=== PATIENT | female | born 1990 | race Caucasian/White ===

== ENCOUNTER 2016-05-18 20:18 | Emergency (ER) | payer MEDICARE, MEDICAID ==
[~2016-05-18] VITALS: Ht 149.9 cm; Wt 118.2 kg
[~2016-05-18 20:18] MED LIST: PREN1TAB47 PO; ZOL50 PO
[2016-05-18 20:20] VITALS: BP 143/77; PULSE 80; RESP 18; O2SAT 97
--- NOTE | 2016-05-18 21:35 | ED.REPORT ---
HPI-Extremity Problem Lower Date of Service May 18, 2016 ED Provider: Benja Alexis MD Patient is a 25 year old female who is currently presents to the ED with left ankle pain after she fell off a step leaving their house just prior to arrival. She reports intense pain right after the injury occurred, with associated swelling and bruising. The patient denies having any pain when ambulating on her foot and is able to bear weight on her foot. She is able to move her ankle normally and denies any numbness in her toes. She did not sustain any other injuries. Patient was cleared by Family prior to arrival. Nursing Notes Stated Complaint: L ANKLE Chief Complaint: Extremity Trauma Nursing Notes Reviewed: Yes Allergies: Coded Allergies: No Known Allergies (Verified , 11/22/15) Scheduled Vit/Fe Fumarate/Fa-Expunged Drug, Do (-Expunged Drug, Do Not Renew!) 1 Tab Tablet 1 TAB PO DAILY Sertraline-Expunged Drug, Choose New Med! (Sertraline-Expunged Drug, Choose New Med!) 50 Mg Tab 50 MG PO DAILY General Time Seen by MD: 20:25 Chief Complaint Ankle injury left Hx Obtained From: Patient Arrived By: Walk-in Onset Occurred: Just prior to arrival Symptom Duration: Since onset Location: : Ankle left Quality: Painful Severity: Current: No pain currently Severity: Maximum: Severe Recent Healthcare: No recent doctor visit, No recent hospitalization Similar Sx Previous: No Past Medical History Past Medical History none reported Past Surgical History Reports: Smoking History Unknown if Ever Smoker Social History Other Social History: Good social support, Local resident Ambulatory Status Independent Review of Systems Musculoskeletal: Reports: Extremity pain, Extremity swelling, Joint pain Neurologic: Denies: Numbness, Weakness Complete sys rev & neg: except as marked. Physical Exam Initial Vital Signs Vital Signs (First) Date Time Temp Pulse Resp B/P Pulse Ox O2 Delivery O2 Flow Rate FiO2 05/18/16 20:20 36.7 80 18 143/77 97 Room Air Initial VS: Reviewed Head / Eyes: Atraumatic, Normocephalic, PERRL ENT: Conjunctiva normal, No scleral icterus Neck: Supple, Full range of motion Upper Extremities: Vascular intact, Neuro intact Skin: Warm, Dry, No cyanosis Neurologic: Alert, Oriented, Nonfocal Psychiatric: Mood/affect normal, Behavior normal, Normal thought content Lower Extremity / Pelvis / MS: Non-tender, Neurologic intact, Vascular intact Ankle / Foot: Neurologic intact, Vascular intact Left Ankle: Negative: Tenderness present... (no bony tenderness) General/Constitutional: Awake, Alert, No acute distress Appearance / Presentation: Positive: Obese Respiratory / Chest: Breath sounds NL, Breath sounds = bilat, No respiratory distress, No rales, No rhonchi, No wheezing Cardiovascular: Heart rate NL, Regular rhythm, No murmurs Interpretation & Diagnostics X-Ray Interpretation X-Ray Ordered: Ankle left (3VW) Interpretation / Wet Read by: Wet read ED physician Interpretation: Normal exam, No fracture/dislocation Re-Eval/Medical Decision Med Decision/Clinical Course 25-year-old female left ankle pain status post rolling ankle. Able to walk on it. X-ray negative. She has no pain at this time. Likely mild sprain. Recommend rice. Weightbearing as tolerated. Follow up primary doctor next week if symptoms persist. Source of Hx: Old records Re-Evaluation/Progress : Time of Eval: 21:46 Patient Status: Condition improved Re-Evaluation/Progress Note: X-ray was negative. Patient understands and agrees with the plan to be discharged home. Discharge instructions and follow-up discussed. All questions were addressed. Return to the ED warnings given. Counseled Regarding: Diagnosis, Need for follow-up, When/why to return to ED Discharge & Departure Impression: Primary Impression: Left ankle sprain Encounter type: initial encounter Involved ligament of ankle: unspecified ligament Qualified Code: S93.402A - Sprain of unspecified ligament of left ankle, initial encounter Disposition: Home Discharge Condition All VS Reviewed: Yes Condition: Stable Patient Instructions: Ankle Sprain (ED) Additional Instructions: Your x-ray today shows that you did not fracture your ankle, it is likely that you sprained your ankle. Use ice three times daily for 20 minutes at a time for pain and swelling. You should elevate your leg. You can also wrap your leg or use crutches if this is more comfortable for you. Follow-up with your doctor in the next week. Return to the emergency department if you develop pain, swelling, or any other concerning symptoms. Referrals: Jessica Desai (PCP) Scribe Attestation Portions of this note were transcribed by Heidi Dent. I, Dr. Alexis personally performed the history, physical exam and medical decision-making; I reviewed and confirmed the accuracy of the information in the transcribed note. Signed by: Vito Bustillo, 05/18/2016 [id number] copies to: Jessica Desai Ben M MD May 18, 2016 21:35 Heidi Dent May 18, 2016 21:41
--- NOTE | 2016-05-18 22:11 | DRSVH ---
PROCEDURE: X-RAY LEFT ANKLE, MINIMUM THREE VIEWS ([id number]) INDICATIONS: trauma TECHNIQUE: 3 views of the ankle were acquired. COMPARISON: None. FINDINGS: Bones: No fractures or dislocations. Ankle mortise is normally aligned. No suspicious bony lesions . Soft tissues: No tibiotalar joint effusion. Achilles tendon appears normal. IMPRESSION: No fracture. No osseous lesion. If there are persistent symptoms or clinical suspicion f or pathology, then repeat radiographs or advanced imaging (CT, MRI or bone scan) should be considered for further evaluation. Dictated by: Philomena Schumacher MD, PhD on 05/18/2016 at 22:09 Approved by: Philomena Schumacher MD, PhD on 05/18/2016 at 22:09
== END 2016-05-18 22:00 | disposition home or self-care (01) ==
LOC: SED 20:18
DX: S93.402A Sprain of unspecified ligament of left ankle, initial encounter (principal); W10.8XXA Fall (on) (from) other stairs and steps, initial encounter; Y92.009 Unspecified place in unspecified non-institutional (private) residence as the place of occurrence of the external cause; Y93.89 Activity, other specified; Y99.8 Other external cause status; Z33.1 Pregnant state, incidental
CPT/HCPCS: 73610; 76816; 99284; G0463

== ENCOUNTER 2016-06-20 07:30 | Inpatient (IN) | payer MEDICARE, MEDICAID ==
[~2016-06-20] VITALS: Ht 149.9 cm; Wt 117.0 kg
[~2016-06-20 07:30] MED LIST changes: +Carboprost 250 mCg/mL Inj IM PRN; +Hemorrhage Kit, Post Partum XX ONE; +Lactated Ringer's 1,000 ML IV SCH; +Methylergonovine 0.2 mg/mL Inj IM PRN; +Oxytocin 10 Unit/mL Inj IM PRN; +Sodium Citrate-Citric Acid 15 mL Solution PO SCH
[2016-06-20] MEDS ORDERED: CeFAZolin Inj 2 GM in Dextrose 5% 50 ML IV SCH (07:43)
[2016-06-20] MEDS ORDERED: Ondansetron 2 mg/mL 2 mL Inj ONE (08:06)
[2016-06-20] MEDS ORDERED: Phenylephrine/NS 100 mCg/mL 10 mL Syringe IVPUSH ONE (08:06)
[2016-06-20] MEDS ORDERED: Oxytocin 10 Unit/mL Inj ONE (08:06)
[2016-06-20] MEDS ORDERED: fentaNYL-PF 50 mCg/mL 2 mL Inj ONE (08:06)
[2016-06-20] MEDS ORDERED: Bupiv-Spinal 0.75%/Dex 8.25% 2 mL Inj ONE (08:06)
[2016-06-20] MEDS ORDERED: Propofol 10,000 mCg/mL 20 mL Inj ONE (08:06)
[2016-06-20] MEDS ORDERED: Morphine PF 1 mg/mL 10 mL Inj ONE (08:10)
[2016-06-20 09:56] LABS: Mean Corpuscular Hemoglobin 29.6 pg (27.0-35.0); Mean Corpuscular Volume 84.6 fL (81-100)
--- NOTE | 2016-06-20 09:58 | PCM.HPANE ---
Patient Data Surgeon Admitting Provider:Costa Feliz MD Attending Provider:Costa Feliz MD Primary Care Physician:Verna Bobo DO Other Provider:Jean Claude Miller Anesthesia Reason for Visit Term Repeat C Section Completed Family With Tubal Ht/WT & BMI Body Mass Index Allergies Coded Allergies: No Known Allergies (Verified , 11/22/15) Medications Reported Medications Sertraline-Expunged Drug, Choose New Med! 50 Mg Tab50 Mg PO DAILY Ref 0 10/24/08 Vit/Fe Fumarate/Fa-Expunged Drug, Do (-Expunged Drug, Do Not Renew!)1 Tab Tablet1 Tab PO DAILY Ref 0 10/24/08 History Smoking Status: Unknown if Ever Smoker Stop/Bang Risk Assessment Category Category 1A: Patient has history of documented sleep apnea, and HAS NOT received any narcotic, sedative or anesthesia administration during this stay. Category 1B: Patient has history of documented sleep apnea, and HAS received any narcotic , sedative or anesthesia administration during this stay Category 2: Patient has SUSPECTED Obstructive Sleep Apnea, and HAS received any narcotic , sedative or anesthesia administration during this stay. Category 3: Patient has SUSPECTED Obstructive Sleep Apnea and HAS NOT received narcotic, sedative or anesthesia administration during this stay. Category 4: Outpatient in Procedural Areas with known sleep apnea or who screen positive for High Risk via the STOP/BANG questionnaire. Exam Exam General Appearance: Alert, Oriented X3, Cooperative, No Acute Distress HEENT/AIRWAY: MP 2 Lungs: Clear to Auscultation Heart: Exam Unremarkable Plan Impression Patient chart reviewed, patient interviewed and anesthestic plan with risks, benefits, and alternatives discussed, and informed consent obtained. ASA Physical Status: ASA3 Severe Disease (morbid obesity, smoker, bipolar d/o) Anesthetic Plan: SAB Bene/Risks/Altern/Consents: Yes HP Complete Prior to Induction: Yes Mauro Ramos MD Jun 20, 2016 07:52
[2016-06-20] MEDS ORDERED: Lactated Ringer's 1,000 ML IV PRN (10:23)
[2016-06-20] MEDS ORDERED: MetoCLOpramide 5 mg/mL 2 mL Inj IVPUSH PRN (10:25)
[2016-06-20] MEDS ORDERED: EPHEDrine Sulfate 50 mg/mL Inj IVPUSH PRN (10:25)
[2016-06-20] MEDS ORDERED: Morphine PF 1 mg/mL 10 mL Inj INTRATHEC ONE (10:25)
[2016-06-20] MEDS ORDERED: Dexamethasone 4 mg/mL Inj IVPUSH PRN (10:25)
[2016-06-20] MEDS ORDERED: fentaNYL-PF 50 mCg/mL 2 mL Inj IVPUSH PRN (10:25)
[2016-06-20] MEDS ORDERED: Atropine 0.4 mg/mL Inj IV PRN (10:25)
[2016-06-20] MEDS ORDERED: Ondansetron 2 mg/mL 2 mL Inj IVPUSH PRN (10:25)
[2016-06-20] MEDS ORDERED: HYDROmorphone 1 mg/mL Inj IVPUSH PRN (10:25)
--- NOTE | 2016-06-20 11:47 | PCM.OBCSEC ---
Delivery Date of Service Jun 20, 2016 Pre Procedure Diagnosis 1. 39 weeks gestation 2. Obestity with BMI 52 3. Previous 4. Desires sterilization 5. Tobacco use Post Procedure Diagnosis 1. 39 weeks gestation 2. Obestity with BMI 52 3. Previous 4. Desires sterilization 5. Tobacco use 6. Light meconium Procedure Repeat low transverse delivery with bilateral tubal ligation Procedure: Planned Relay Associate/Open End Spinning Operator Surgeon: Costa Feliz MD Assistants: Sandra Rasheed MD Resident: David Barker DO, [facility] Dr. Rasheed's assistance was necessary due to obesity and safe completion of this complicated case. Indication for Procedure Milly is a 25 y/o at 38 weeks who presents today for her scheduled CD with BTL. Her dating is by sure LMP c/w 1st trimester dating. Her is complicated by 2 prior CDs, Bipolar disorder, Class III obesity, tobacco abuse. She had an anesthesia appointment already this . She has been measuring size> dates likely related to body habitus as EFW on u/s has been WNL. Risks, benefits and alternatives of the procedure were reviewed in detail preoperatively in the office on 06/13/2016 and consents obtained. Patient was allowed adequate time to have all questions answered and she denied new concerns or questions today. Findings Light meconium. Nuchal cord x 1. Normal uterus, tubes and ovaries. Obstetrical Findings: (Female) Cord (3 Vessel) Weight ( 3045 grams) Presentation (Vertex) 1 minute (4) 5 minutes (6) 10 minutes (8) Placenta (Intact/Normal) Complications None Analgesia/Medications Spinal Procedure Details The patient was taken to the OR where spinal anesthesia was established. She was placed in dorsal supine with a leftward tilt. García was placed. SCDs placed. She was prepped and draped in the usual sterile fashion. A time out was performed to confirm the correct patient and the correct procedure. The anesthesia was tested and found to be adequate. A scalpel was then used to make a Pfannenstiel incision through the prior incision and carried down to the underlying fascia. A transverse incision was made in the fascia, and the fascial incision was extended transversely. Sharp and blunt dissection was used to separate the rectus muscle from fascia superiorly and inferiorly. The rectus muscles were then divided in the midline and the peritoneum was identified and entered bluntly. The peritoneal incision was extended and the bladder blade was placed for visualization. A transverse hysterotomy incision was made in the lower uterine segment and extended. Rupture of membranes revealed light meconium. The fetus was delivered atraumatically after nuchal cord reduced. Active warming and stimulation provided with little respiratory effort by the baby, so at 20seconds the cord was clamped and cut and the was handed to the awaiting nurse. Cord blood was obtained. The placenta was then delivered intact. The uterus was exteriorized. The uterus was then cleared of the remaining clots and debris. The hysterotomy incision was then closed with single layer closure with 0-Vicryl suture. Hemostasis was obtained with two additional figure eights of 0-Vicryl over the hysterotomy. The right fallopian tube was identified, grasped with a Paris and 2 2-0 plain gut sutures passed through the mesosalpinx. The distal and proximal segments were tied so that 3cm of intervening tube was left and then excised. Hemostasis noted. This was repeated on the left. The posterior cul-de-sac was irrigated and cleared of clots and debris. The uterus was replaced into the abdominal cavity. The rectus muscles and fascia were inspected and hemostasis was obtained. The fascia was then closed in a running fashion using 0-vicryl suture. The subcutaneous tissue was irrigated and hemostasis was assured. Any areas of bleeding were cauterized with Bovie. The subcutaneous layer was closed with 2-0 plain gut. The skin was closed with 4-0 vicryl then Dermabond and steristrips placed. A pressure dressing was applied. Instrument, sponge, and needle counts were correct prior to abdominal closure and at the conclusion of the case. The patient tolerated the procedure well and was sent to recovery in stable condition. Specimen Bilateral tubal segments sent. Input/Output Intake, IV Amount: 2700 Catheters: Urethral 2 Way García (25) Blood Loss & Administration Estimated Blood Loss: 700 (mL) Post Operative Plan Post delivery Condition: Mom stable, Baby stable to nursery Post delivery Antibiotics: Ancef VTE Prophylaxis: Costa Campbell MD Jun 20, 2016 11:47
[2016-06-20] MEDS ORDERED: Methylergonovine 0.2 mg/mL Inj IM PRN (11:55)
[2016-06-20] MEDS ORDERED: Oxytocin 10 Unit/mL Inj IM PRN (11:55)
[2016-06-20] MEDS ORDERED: Oxytocin 30 Units/500 mL LR 30 UNITS in IV Premix 1 EACH IV PRN (11:55)
[2016-06-20] MEDS ORDERED: Carboprost 250 mCg/mL Inj IM PRN (11:55)
[2016-06-20] MEDS ORDERED: LANOlin HPA 7 Gm Ointment TOPICAL PRN (11:55)
[2016-06-20] MEDS ORDERED: diphenhydrAMINE 50 mg Capsule PO PRN (11:55)
[2016-06-20] MEDS ORDERED: Hemorrhage Kit, Post Partum XX ONE (11:55)
[2016-06-20] MEDS ORDERED: Acetaminophen IV 1,000 MG in IV Premix 1 EACH IV PRN (11:55)
--- NOTE | 2016-06-20 12:10 | PCM.ANEP1 ---
Post Anesthesia Phase 1 PACU Phase 1 Assessment Anesthetic Administered: SAB Level of Alertness: Awake, talking PELAEZ's with Equal Strength: No (spinal) Pain: No Oxygen Delivery: Room Air Lungs: Clear to Auscultation Mauro Ramos MD Jun 20, 2016 12:09
--- NOTE | 2016-06-20 12:10 | PCM.ANEP2 ---
Post Anesthesia Evaluation ASA/CMS Post Anesthesia VS in Patient's Normal Range?: Yes Resp Stable; Airway Patent?: Yes CV Function & Hydration Stable: Yes Mental Status Recovered?: Yes Pain control Satisfactory?: Yes N/V Control Satisfactory?: Yes Mauro Ramos MD Jun 20, 2016 12:10
[2016-06-20] MEDS: Lactated Ringer's 1,000 ML IV SCH ×2 (12:47→16:39)
--- NOTE | 2016-06-20 19:27 | NUR ---
Shift report: Assessed mom at 1605. Denied any pain. Lungs CTA. Encouraged C&DB with support. Mom denies flatus, abd soft with hypoactive BT. Abd dressing is CDI. FF 3/U. Light flow. Pericare done. García cath patent with orange urine Quantity sufficiant. LR infusing at 125hr. Pt taking fluids and food.
[2016-06-20] MEDS: Sodium Chloride LOK Flush 10 mL Syringe IVFLUSH PRN (22:36)
[2016-06-21] MEDS: Lactated Ringer's 1,000 ML IV SCH (02:29)
--- NOTE | 2016-06-21 07:53 | PCM.PNOBPP ---
Subjective Date of Service Jun 21, 2016 Post : Repeat Ceserean Delivery Visit History Milly is a 25 y/o now at 39 weeks who is POD#1 s/p RLTCS with bilateral tubal ligation. Her dating is by sure LMP c/w 1st trimester dating. Her is complicated by 2 prior CDs and Class III obesity. She had an anesthesia appointment already this . She has been measuring size> dates likely related to body habitus as EFW on u/s has been WNL. O+ Ab screen negative Varicella and Rubella Immune RPR and HIV Non-Reactive HBsAG, Hep C negative GC/TC Negative. GBS unknown declined. HA1c 5.3. Subjective Patient was asleep in the room, she states that she is feeling fine, not in any noticeable pain, however points out that her right hand is swollen, distal to IV insertion. Lochia: Normal Pain Management: Good Pain Control (IV Tylenol and the only medication administered for post surgical pain.) Labs O+ Ab screen negative Varicella and Rubella Immune RPR and HIV Non-Reactive HBsAG, Hep C negative GC/TC Negative. GBS unknown declined. HA1c 5.3. Group B Strep Results: Not done Rubella: Immune Blood Type: O RH Type: Positive Labs Laboratory Tests 06/20/16 09:15: White Blood Count 11.7, Red Blood Count 4.60, Hemoglobin 13.6, Hematocrit 38.9, Mean Corpuscular Volume 84.6, Mean Corpuscular Hemoglobin 29.6, Mean Corpuscular Hemoglobin Concent 35.0, Red Cell Distribution Width 13.0, Platelet Count 230 Exam Vital Signs Vital Signs 127/64, 83 bpm, 15 respirations per minute, ED 8% SaO2, 36.9C Vital Signs: VS reviewed, concerns are (low SaO2) Exam Abdomen: Fundus firm, Abdomen appropriately tender : García catheter (800 mL clear yellow) Extremities: No cords, Normal pulses, Edema 1+ Lungs: Clear to Auscultation Heart: Regular Rate/Rhythm, Normal S1, Normal S2, No Murmurs/Rubs/Gallops General: Alert, Oriented X3, Cooperative, No Acute Distress Additional Information Pressure dressing in place- remove 24 hours s/p surgery. OB Post Assessment/Plan Assessment 25-year-old woman status post repeat section and tubal ligation, recovering well. Problems: (1) Previous delivery affecting Status: Acute ICD Code: O34.21 (2) S/P repeat low transverse Status: Acute ICD Code: Z98.89 (3) Encounter for sterilization Status: Acute ICD Code: Z30.2 Pain Management: Oral analgesics Pain Evaluation: Adequate Pain Control Post plan: Continue routine post care, Discharge home tomorrow Plan: Postoperative care. Encourage breast-feeding Encourage early ambulation. Nicotine patch as requested DC García Attending Statement Patient seen and examined this AM, POD#1 s/p repeat low transverse with bilateral tubal ligation. She is OK this AM, complaining of diffuse abdominal pain. She had issues with low 02 saturation overnight, likely related to her body habitus- resolved when awake. Her mood is stable this AM on sertraline and lamotrigine. García catheter was removed this AM and urine output was adequate overnight- awaiting spontaneous void. Lochia is minimal. Labs reviewed and WNL. Vitals with some mildly elevated blood pressures in addition to her low 02 saturation, will continue to monitor. Social work to see patient given her mood disorder history and no custody of older children. Tolerating a regular diet, awaiting return of flatus. Exam with normal heart/ lungs, Abdomen with firm fundus, mild abominal pain, incision w/ pressure dressing without drainage, 2+DTR, no clonus, 3+LE edema, Anticipate discharge home tomorrow. David Barker DO Jun 21, 2016 06:41 Sandra Rasheed MD Jun 21, 2016 15:36
[2016-06-21] MEDS: Sodium Chloride LOK Flush 10 mL Syringe IVFLUSH PRN (08:04)
[2016-06-21] MEDS: oxyCODONE-Acetamin 5-325 mg Tablet PO PRN ×4 (08:17→21:56)
--- NOTE | 2016-06-21 08:19 | NUR ---
received sw referral. advised mica miner blasting
[2016-06-21 08:47] LABS: Mean Corpuscular Volume 86.8 fL (81-100)
[2016-06-21] MEDS: lamoTRIgine 100 mg Tablet PO SCH (09:29)
--- NOTE | 2016-06-21 11:42 | NUR ---
Social Work Note D/A: Pt is a 25 year old female who currently lives with DONALD and his mother in [place]. Pt explained that they live in an upstairs apartment in a home that is owned by DONALD's brother and his family. Pt indicated that she intends to return to this home with BG at the time of discharge. Pt reported that she has two previous children who were adopted out. Pt explained that her oldest son was removed from her care by CPS and adopted. Pt indicated that her second son was adopted when she and FOAlon determined that they were not able to parent. Pt explained that the second adoption was an open one and she still has contact with her four year old. Pt reported that she is planning to parent BG and indicated that she has everything that she will need at home to safely care for BG at discharge. DONALD is Christiano SANTHOSH Alicea 12/13/1979. DONALD lives in the home with Pt and is planning to co-parent with her and remain available to assist with caring for BG. DONALD reported that his mother also lives in the home and is planning to assist in caring for BG as well. Pt indicated that she is enrolled in [employer] and is receiving food stamps. Pt indicated that she has a strong network of supportive friends and family that will be available to assist in caring for BG if needed. Pt denied all recent CD and denied any CD during . Pt's UDS was negative at the time of admission. Pt reported that she has a history of mental illness with diagnoses of Bipolar I, depression and ADHD. Pt indicated that she is taking Lamotrigine and Citalopram as prescribed by her PCP to manage her psychiatric symptoms. Pt explained that her psychiatric symptoms are well controlled by her medications and indicated that she is not currently enrolled in outpatient mental health treatment. Pt reported that she has a history of angry outbursts and explained that she has completed anger management classes and has a plan in place with her family to hand BG off if she becomes irritated while caring for BG. FOB confirmed this plan. Pt reported no legal history. Pt reported no history of DV. Pt reported no additional needs at prior to discharge at this time. P: Pt reports a strong support network in the immediate area. Pt is enrolled in appropriate social human services assistants. Pt admitted to a history of angry outbursts and explained that she has taken effective steps to correct this behavior and ensure BG's safety. Pt reported a history of mental illness and explained that her psychiatric symptoms are currently well controlled by medication. staff nuclear medicine technologist reported that Pt has been appropriate and affectionate with BG while in the hospital. SUGAR TRUCKER conferred with [facility] staff nuclear medicine technologist and the decision was made that no CPS referral was needed at this time. Pt to be discharged once medically cleared by [facility] . ROSALBA Gutierrez, AAC
[2016-06-22] MEDS: oxyCODONE-Acetamin 5-325 mg Tablet PO PRN ×3 (03:34→13:32)
[2016-06-22] MEDS: lamoTRIgine 100 mg Tablet PO SCH (08:39)
--- NOTE | 2016-06-22 09:46 | PCM.DIMED ---
RiscoDavid DO 06/22/16 0946: Discharge Instructions Date of Service Jun 22, 2016 Dates of Hospitalization Jun 20, 2016 at 7:30 am Discharge Diagnosis Discharge Diagnosis Repeat section Term Status post bilateral tubal ligation Medication Instructions Percocet 5/325 mg, take 1 tab q4-6h PO PRN for pain, #40 Colace 100 mg BID PO PRN for constipation #80 Ferrous sulfate 325 mg PO daily, #90 Vitamin C 500 mg PO daily, #90. Take with iron Ibuprofen 800mg, take 1 tab q8h PO PRN for pain #42 Diet No restrictions Activity Other (no heavy lifting, greater than 10 pounds, for 6 weeks. Pelvic rest for 6 weeks) Call your provider Fever or Chills, Shortness of breath, Bleeding, Chest pain, Vomitting, Excessive diarrhea, Weakness (unilateral) Patient Instructions Continue your vitamin. Please take the iron and vitamin c together for your anemia. Do not take more pain medication (Percocet) than is necessary -- less is better. Percocet pills have Tylenol (acetaminophen) in them at 325mg per pill. Do not take Tylenol in addition to your pain medication but should take one or the other. Both iron and Percocet can give you constipation so you have also been given a prescription for docusate to keep you regular. Be sure to follow up in 2 weeks and then again in 6 weeks at [facility]. Pelvic rest for 6 weeks (nothing per vagina including intercourse, tampons) If you have a fever greater than 100.4, please call [facility]. There is always someone train operations manager to talk to. If you have an increase in bleeding, call [facility]. If you have a lot of bleeding suddenly, especially if you have symptoms of dizziness & weakness with it, get emergency help. When you see [facility] in two weeks, you will be informed of the results of all the labs. If you start experiencing extreme depression, especially if you feel that you are a danger to yourself or your family, seek emergency help. You have been through a lot -- BE SURE TO TAKE CARE OF YOURSELF. It is very important that you keep your incision dry. Please watch for signs of infection which include warmth, increasing pain, redness, discharge of any type from the incisional area. Follow-up plan Follow-up in 2 and 6 weeks at [facility] Costa Feliz MD 06/22/164: David Barker DO Jun 22, 2016 09:46 Costa Feliz MD Jun 22, 2016 20:34
[2016-06-22] MEDS ORDERED: NICO1PAT6 TOPICAL (09:51)
[2016-06-22] MEDS ORDERED: IBUP800T28 PO (09:51)
[2016-06-22] MEDS ORDERED: CITA20TA PO (09:51)
[2016-06-22] MEDS ORDERED: LAMO100T PO (09:51)
[2016-06-22] MEDS ORDERED: DOCU-41 PO (09:51)
[2016-06-22] MEDS ORDERED: OXYC1TAB24 PO (09:51)
--- NOTE | 2016-06-22 10:02 | PCM.DC.OB ---
Obstetrical Discharge Summary Date of Service Jun 22, 2016 Date of hospital admission Jun 20, 2016 at 07:30 Date of Discharge: Jun 22, 2016 Providers Admitting Physician: Costa Feliz MD Primary Care Physician: Verna Bobo DO Attending Physician: Costa Feliz MD Problems: (1) Previous delivery affecting Status: Acute ICD Code: O34.21 (2) S/P repeat low transverse Status: Acute ICD Code: Z98.89 (3) Encounter for sterilization Status: Acute ICD Code: Z30.2 Brief History and Physical: Milly is a 25 y/o now at 39 weeks s/p LTCS with bilateral tubal ligation. Her dating is by sure LMP c/w 1st trimester dating. Her was complicated by 2 prior CDs and Class III obesity. She has been measured size> dates likely related to body habitus as EFW on u/s has been WNL. O+ Ab screen negative Varicella and Rubella Immune RPR and HIV Non-Reactive HBsAG, Hep C negative GC/TC Negative. GBS unknown declined. HA1c 5.3. Physical exam on day of discharge Gen.: Laying in bed asleep Head atraumatic, extraocular muscles intact. Cardio: Regular rate and rhythm, no clicks murmurs or rubs. Pulmonary: clear to auscultation bilaterally no rales or wheezing or rhonchi Extremities: 3+ edema bilaterally lower extremities. Abdominal: Tenderness in the upper abdomen, mid abdomen, there is a triangular- shaped area of ecchymosis that was not previously there. Bowel sounds are present. Surgical site: Areas under the pannus is moist, there is a small area of faint redness superior to the incision site nontender. Hospital Course: Patient presented for repeat section at term gestation. She had a meeting with social work along with father of child who deemed that CPS referral is not necessary at this time. Discharged on postop day 2 after demonstrating independent ambulatory status, passing status, urinating appropriately, and no fevers. Ascorbate Calcium (Vitamin C) 500 Mg Tablet 500 MG PO DAILY Prescribed by: LILIAN ELLIOTT DO Citalopram Hydrobromide (Celexa) 20 Mg Tablet 40 MG PO DAILY Prescribed by: LILIAN ELLIOTT DO Docusate Sodium (Colace) 100 Mg Capsule 100 MG PO BID Prescribed by: LILIAN ELLIOTT DO Ferrous Sulfate (Feosol) 325 Mg Tablet 325 MG PO DAILY Prescribed by: LILIAN ELLIOTT DO Ibuprofen (Ibuprofen) 800 Mg Tablet 800 MG PO Q6H PRN PRN For Pain Prescribed by: LLIIAN ELLIOTT DO Lamotrigine (Lamictal) 100 Mg Tablet 100 MG PO DAILY Prescribed by: LILIAN ELLIOTT DO Nicotine 21 mg/24 hr Patch (Nicotine 21 mg/24 hr Patch) 1 Each Patch.td24 1 PATCH TOPICAL HS Prescribed by: LILIAN ELLIOTT DO Vit/Fe Fumarate/Fa-Expunged Drug, Do (-Expunged Drug, Do Not Renew!) 1 Tab Tablet 1 TAB PO DAILY (Reported) oxyCODONE-Acetaminophen 5-325 mg (oxyCODONE-Acetaminophen 5-325 mg) 1 Each Tablet 1-2 TAB PO Q4H PRN PRN For Pain Prescribed by: LILIAN ELLIOTT DO Discontinued Medications Sertraline-Expunged Drug, Choose New Med! (Sertraline-Expunged Drug, Choose New Med!) 50 Mg Tab 50 MG PO DAILY (Reported) Disposition Patient is discharged from [facility], most likely to [facility] while her child remains for evaluation. Follow-up plan Follow up in 2 and 6 weeks at [facility] Discharge Diet: No restrictions Discharge Activity-General: Pelvic Rest for 6 weeks Patient instructions Continue your vitamin. Please take the iron and vitamin c together for your anemia. Do not take more pain medication (Percocet) than is necessary -- less is better. Percocet pills have Tylenol (acetaminophen) in them at 325mg per pill. Do not take Tylenol in addition to your pain medication but should take one or the other. Both iron and Percocet can give you constipation so you have also been given a prescription for docusate to keep you regular. Be sure to follow up in 2 weeks and then again in 6 weeks at [facility]. ( Follow up for without complications is 6 weeks) Pelvic rest for 6 weeks (nothing per vagina including intercourse, tampons) If you have a fever greater than 100.4, please call [facility]. There is always someone certified personal chef to talk to. If you have an increase in bleeding, call [facility]. If you have a lot of bleeding suddenly, especially if you have symptoms of dizziness & weakness with it, get emergency help. When you see [facility] in two weeks, you will be informed of the results of all the labs. If you start experiencing extreme depression, especially if you feel that you are a danger to yourself or your family, seek emergency help. You have been through a lot -- BE SURE TO TAKE CARE OF YOURSELF. Keep the surgical area dry. Watch for signs of infection and contact our office if there is any increased pain, discharge, redness. Attending Statement: The patient was seen and examined together with Dr. Barker on 06/22/2016 and I agree with the history, exam and plan as outlined in the note above. Discharge instructions reviewed in detail. F/u in 2 and 6 weeks. / MD Lucero Pfeiffer Noah M DO Jun 22, 2016 10:02 Costa Feliz MD Jun 22, 2016 20:34
--- NOTE | 2016-06-22 10:32 | NUR ---
Social Work Note D/A: MANAGER SKILLED spoke with DIAMOND New on [facility] regarding Pt's case and was requested to provide an informational report to CPS regarding Pt's recent . Virgen indicated that the CPS report was requested due to Pt's previous CPS involvement. P: MANAGER SKILLED called CPS and spoke with Froy Banuelos who indicated that the report would not screen in for further follow up. ROSALBA Gutierrez, AAC
[2016-06-22 14:27] VITALS: BP 147/85; PULSE 82
[2016-06-22] MEDS ORDERED: FERR-74 PO (15:25)
[2016-06-22] MEDS ORDERED: ASCO-294 PO (15:27)
--- NOTE | 2016-06-23 10:10 | PATH ---
SURGICAL PATHOLOGY Attending Physician:Costa Feliz MD CASE STATUS: Signed Out PATIENT NAME: SOHAIL ALONSO PID: [id number] : 1990 DATE COLLECTED:06/20/2016 00:00 SPECIMEN: 1: Fallopian Tube, Sterilization 2: Fallopian Tube, Sterilization CLINICAL HISTORY: 1). PORTION OF RIGHT FALLOPIAN TUBE 2). PORTION OF LEFT FALLOPIAN TUBE FINAL DIAGNOSIS: 1. 2.SEGMENTS OF RIGHT AND LEFT FALLOPIAN TUBES (STERILIZATION PROCEDURE):NO SIGNIFICANT PATHOLOGIC CHANGE. ICD10 CODE Z30.2 GROSS DESCRIPTION: The specimens are received in formalin, labeled with the patient's name, and sublabeled as the following: (1) portion of R fallopian tube; (2) portion of L fallopian tube. (1) The specimen consists of a non-fimbriated segment of fallopian tube (length-1.5 cm, diameter-0.5 cm). The serosa is martinez-pink smooth and shiny. The lumen is martinez and unremarkable. Section code: (1A) fallopian tube segment, trisected. Specimen entirely submitted. (2) The specimen consists of a non-fimbriated segment of fallopian tube (length-0.9 cm, diameter-0.6 cm). The serosa is martinez-pink smooth and shiny. The lumen is martinez and unremarkable. Section code: (2A) fallopian tube segment, trisected. Specimen entirely submitted. 06/21/16 JM MICRO DESCRIPTION: See diagnosis. ICD-9 CODES: CPT CODES: 1: 02638 2: 03443 Electronically Signed Out Hollis Paredes MD [facility] [address], [place] [address] Technical component performed at [facility], [address] [place] [address] Ave[address], [place], [address]
== END 2016-06-22 15:26 | disposition home or self-care (01) | DRG 765 ==
LOC: FBC 07:30 → EDSTATUS 09:30
PROVIDERS: ADMIT Obstetrics & Gynecology; ATTEND Obstetrics & Gynecology
PROC: 0UL70ZZ Occlusion of Bilateral Fallopian Tubes, Open Approach (ICD-10-PCS; 2016-06-20)
PROC: 10D00Z1 Extraction of Products of Conception, Low, Open Approach (ICD-10-PCS; principal; 2016-06-20 09:30)
DX: O69.82X0 Labor and delivery complicated by other cord entanglement, without compression, not applicable or unspecified (principal); Z68.43 Body mass index [BMI] 50.0-59.9, adult; O34.211 Maternal care for low transverse scar from previous cesarean delivery; Z3A.39 39 weeks gestation of pregnancy; O99.213 Obesity complicating pregnancy, third trimester; O77.0 Labor and delivery complicated by meconium in amniotic fluid; O99.333 Smoking (tobacco) complicating pregnancy, third trimester; F17.210 Nicotine dependence, cigarettes, uncomplicated; Z37.0 Single live birth; Z30.2 Encounter for sterilization